=== PATIENT | female | born 1990 | race Caucasian/White ===

== ENCOUNTER 2017-06-13 19:58 | Emergency (ER) | payer OTHER ==
[~2017-06-13] VITALS: Ht 157.5 cm; Wt 59.2 kg
[2017-06-13 20:03] VITALS: Ht 157.5 cm; Wt 59.2 kg
[2017-06-13] MEDS ORDERED: SOD CHLORIDE 0.9% 1,000 ML IV STA (21:00)
[2017-06-13] MEDS ORDERED: morphine 4 MG/ML VIAL IV STA (21:00)
[2017-06-13] MEDS ORDERED: ONDANSETRON 4 MG INJ IV STA (21:00)
[2017-06-13 21:41] LABS: ADD SCAN DIFF NO
[2017-06-13 21:50] LABS: BASOPHILS % 0.5 % (0.0-2.0); EOSINOPHILS # 0.1 10^3/ul (0.0-0.5); HEMATOCRIT 37.4 % (37.0-47.0); HEMOGLOBIN 11.9 g/dl (12.0-16.0); LYMPHOCYTES # 2.2 10^3/ul (0.8-2.9); MEAN CORPUSCULAR HEMOGLOBIN 26.6 pg (29.0-33.0); MEAN CORPUSCULAR HGB CONC 31.8 g/dl (32.0-37.0); MEAN CORPUSCULAR VOLUME 83.7 fl (82.0-101.0); MEAN PLATELET VOLUME 10.9 fl (7.4-10.4); MONOCYTE # 0.5 10^3/ul (0.3-0.9); MONOCYTES % 5.8 % (0.0-11.0); NEUTROPHIL # 5.2 10^3/ul (1.6-7.5); NEUTROPHILS % 65.6 % (39.0-77.0); PLATELET COUNT 278 10^3/UL (140-415); RED BLOOD COUNT 4.47 10^6/ul (4.20-5.40); RED CELL DISTRIBUTION WIDTH 16.1 % (11.5-14.5)
[2017-06-13 22:03] LABS: ALBUMIN/GLOBULIN RATIO 1.92; CALCIUM 9.7 mg/dl (8.4-10.2); CREATININE 0.65 mg/dl (0.44-1.00); POTASSIUM 3.4 mmol/L (3.5-5.1); TOTAL PROTEIN 7.6 g/dl (6.1-8.1)
[2017-06-13 22:08] LABS: ADD UMIC NO; UR ASCORBIC ACID 40 mg/dL (NEGATIVE); UR BILIRUBIN (Dip) NEGATIVE (NEGATIVE); UR BLOOD (Dip) NEGATIVE (NEGATIVE); UR CLARITY SLIGHTLY CLOUDY (CLEAR); UR COLOR YELLOW (YELLOW); UR GLUCOSE (Dip) NEGATIVE (NEGATIVE); UR KETONES (Dip) NEGATIVE (NEGATIVE); UR LEUKOCYTE ESTERASE (Dip) NEGATIVE Leu/ul (NEGATIVE); UR NITRITE (Dip) NEGATIVE (NEGATIVE); UR RBC 1 /HPF (0-5); UR SPECIFIC GRAVITY (Dip) 1.014 (1.003-1.030); UR SQUAMOUS EPITHELIAL CELL FEW /HPF (FEW); UR TOTAL PROTEIN (Dip) NEGATIVE (NEGATIVE); UR UROBILINOGEN (Dip) NEGATIVE (NEGATIVE)
--- NOTE | 2017-06-13 22:09 | RADRPT ---
PROCEDURE: CT Abdomen and Pelvis without contrast. CLINICAL INDICATION: Abdominal and pelvic pain. Right lower quadrant pain TECHNIQUE: CT scan of the abdomen and pelvis without contrast was performed. Coronal and sagittal reformatted images were obtained from the axial source images. Images were reviewed on a high-resolu [employer] PACS workstation. Total exam DLP is 335.73 mGy-cm. CTDIvol is 7.45 mGy. One or more of the [place] dose reduction techniques were used: Automated exposure control, adjustment of the mA and/or kV according to patient size, use of iterative reconstruction technique. COMPARISON: None. FINDINGS: The lung bases are normal. There is no pleural effusion. The liver is normal in size and attenuation. There is no focal hepatic lesion. The gallbladder and bile ducts are normal. The spleen is normal in size. There is no focal splenic lesion. Both adrenals are normal with no enlargement or mass. The pancreas is unremarkable with no mass or evidence of pancreatitis. There is no renal mass or hydronephrosis. There is no renal calculus or ureteral calculus. The abdominal aorta is not dilated. There is no retroperitoneal lymphadenopathy or mass. There is no pelvic lymphadenopathy or mass. The bladder and distal ureters are normal. The periappendiceal region is unremarkable with no evidence of appendicitis. The appendix is well s een and appears normal. The bowel and mesentery are normal. There is no free fluid or free gas. The osseous structures are unremarkable with no fracture or lytic lesion. IMPRESSION: 1. No urinary tract calculus or hydronephrosis. 2. Normal appendix. 3. Unremarkable CT scan of the abdomen and pelvis. RPTAT: QQ .Henry Soler MD, Date Time Electronically viewed and signed by .Henry Soler MD, on 06/13/2017 22:08 .R/
[2017-06-13] MEDS ORDERED: IBUP-1542 PO (22:24)
[2017-06-13] MEDS ORDERED: LOPE2CAP PO (22:24)
--- NOTE | 2017-06-13 22:47 | ERD ---
ER Documentation Chief Complaint Date/Time DATE: 06/13/17 TIME: 22:44 Chief Complaint RLQ abd pain since yesterday denies N/vomiting/diarrhea HPI This is a 27-year-old female presents to the ER with right lower quadrant pain that started yesterday. Patient states that abdominal pain is sharp and intermittent describes it as severe. She denies any fevers or chills. She denies any nausea or vomiting. She does admit to watery nonbloody diarrhea. Her last normal menstrual period was on May 08, 2017. Patient denies any urinary frequency or dysuria. She denies any pelvic pain or vaginal discharge. Patient denies any chest pain or shortness of breath. ROS 12 point review of systems was done, all negative except per HPI. Medications Home Meds Active Scripts Loperamide Hcl* (Imodium*) 2 Mg Capsule, 2 MG PO .AFTER EA LOOSE BM Y for DIARRHEA, #10 TAB Prov:RICARDA CANADA 06/13/17 Ibuprofen* (Motrin*) 600 Mg Tab, 600 MG PO Q6, #30 TAB Prov:RICARDA CANADA 06/13/17 Physical Exam Vitals Vital Signs Date Time Temp Pulse Resp B/P Pulse Ox O2 Delivery O2 Flow Rate FiO2 06/13/17 20:03 98.1 99 18 123/75 98 Physical Exam GENERAL: The patient is well developed and appropriate for usual state of health , in no apparent distress. HEENT: Atraumatic. CHEST: Clear to auscultation bilaterally. There are no rales, wheezes or rhonchi. HEART: Regular rate and rhythm. No murmurs, clicks, rubs or gallops. ABDOMEN: Soft, nontender and nondistended. Good bowel sounds. No rebound or guarding. No gross peritonitis. No gross organomegaly or masses. No Stern sign or McBurney point tenderness. BACK: No midline or flank tenderness. NEURO: Alert and oriented. Result Diagram: 06/13/17212906/13/172129 Results 24 hrs Laboratory Tests Test 06/13/17 21:15 06/13/17 21:30 Urine Color YELLOW Urine Clarity SLIGHTLY CLOUDY Urine pH 7.0 Urine Specific [place] 1.014 Urine Ketones NEGATIVEmg/dL Urine Nitrite NEGATIVEmg/dL Urine Bilirubin NEGATIVEmg/dL Urine Urobilinogen NEGATIVEmg/dL Urine Leukocyte Esterase NEGATIVELeu/ul Urine Microscopic RBC 1/HPF Urine Microscopic WBC 1/HPF Urine Squamous Epithelial Cells FEW/HPF Urine Hemoglobin NEGATIVEmg/dL Urine Glucose NEGATIVEmg/dL Urine Total Protein NEGATIVEmg/dl White Blood Count 8.010^3/ul Red Blood Count 4.4710^6/ul Hemoglobin 11.9g/dl Hematocrit 37.4% Mean Corpuscular Volume 83.7fl Mean Corpuscular Hemoglobin 26.6pg Mean Corpuscular Hemoglobin Concent 31.8g/dl Red Cell Distribution Width 16.1% Platelet Count 19291^3/UL Mean Platelet Volume 10.9fl Neutrophils % 65.6% Lymphocytes % 27.0% Monocytes % 5.8% Eosinophils % 1.0% Basophils % 0.5% Nucleated Red Blood Cells % 0.0/100WBC Neutrophils # 5.210^3/ul Lymphocytes # 2.210^3/ul Monocytes # 0.510^3/ul Eosinophils # 0.110^3/ul Basophils # 0.010^3/ul Nucleated Red Blood Cells # 0.010^3/ul Sodium Level 133mmol/L Potassium Level 3.4mmol/L Chloride Level 99mmol/L Carbon Dioxide Level 28mmol/L Anion Gap 9 Blood Urea Nitrogen 15mg/dl Creatinine 0.65mg/dl Glucose Level 96mg/dl Calcium Level 9.7mg/dl Total Bilirubin 0.0mg/dl Direct Bilirubin 0.00mg/dl Indirect Bilirubin 0.0mg/dl Aspartate Amino Transf (AST/SGOT) 28IU/L Alanine Aminotransferase (ALT/SGPT) 24IU/L Alkaline Phosphatase 61IU/L Total Protein 7.6g/dl Albumin 5.0g/dl Globulin 2.60g/dl Albumin/Globulin Ratio 1.92 Lipase 53U/L Current Medications Medications (Trade) Dose Ordered Sig/Nely Route PRN Reason Start Time Stop Time Status Last Admin Dose Admin Sodium Chloride (NS) 1,000 ml @ 1,000 mls/hr Q1H STAT IV 06/13/17 21:00 06/13/17 21:59 DC 06/13/17 21:27 Morphine Sulfate (morphine) 5 mg ONCE STAT IV 06/13/17 21:00 06/13/17 21:03 DC Ondansetron HCl (Zofran Inj) 4 mg ONCE STAT IV 06/13/17 21:00 06/13/17 21:03 [place] [id number] Radiology Main Line: [phone] DIAGNOSTIC IMAGING REPORT Patient: IGOR NAYLOR : 1990 Age: 27 Sex: F MR #: [id number] DOS: 06/13/17 2100 Ordering MD: RICARDA CANADA PA-C Location: [facility] Room/Bed: PROCEDURE: CT Abdomen and Pelvis without contrast. CLINICAL INDICATION: Abdominal and pelvic pain. Right lower quadrant pain TECHNIQUE: CT scan of the abdomen and pelvis without contrast was performed. Coronal and sagittal reformatted images were obtained from the axial source images. Images were reviewed on a high-resolution PACS workstation. Total exam DLP is 335.73 mGy-cm. CTDIvol is 7.45 mGy. One or more of the following dose reduction techniques were used: Automated exposure control, adjustment of the mA and/or kV according to patient size, use of iterative reconstruction technique. COMPARISON: None. FINDINGS: The lung bases are normal. There is no pleural effusion. The liver is normal in size and attenuation. There is no focal hepatic lesion. The gallbladder and bile ducts are normal. The spleen is normal in size. There is no focal splenic lesion. Both adrenals are normal with no enlargement or mass. The pancreas is unremarkable with no mass or evidence of pancreatitis. There is no renal mass or hydronephrosis. There is no renal calculus or ureteral calculus. The abdominal aorta is not dilated. There is no retroperitoneal lymphadenopathy or mass. There is no pelvic lymphadenopathy or mass. The bladder and distal ureters are normal. The periappendiceal region is unremarkable with no evidence of appendicitis. The appendix is well seen and appears normal. The bowel and mesentery are normal. There is no free fluid or free gas. The osseous structures are unremarkable with no fracture or lytic lesion. IMPRESSION: 1. No urinary tract calculus or hydronephrosis. 2. Normal appendix. 3. Unremarkable CT scan of the abdomen and pelvis. RPTAT: QQ .Henry Soler MD, MD Date Time Electronically viewed and signed by .Henry Soler MD, MD on 06/13/2017 22:08 .R/ CC: RICARDA CANADA Procedures/MDM Differential diagnosis includes but is not limited to appendicitis, UTI, constipation, ectopic , ovarian torsion, PID, Mittelschmerz, fibroid. This is a 27-year-old female presents to the ER with right lower quadrant pain, at this time suspicion for acute abdomen is low. Patient does not have any evidence of leukocytosis or of appendicitis or any other acute abdominal emergency on CT scan. Patient is extremely well-appearing she is afebrile. Patient was sent with ibuprofen with Imodium. Patient is to follow-up with her primary care doctor within 1-2 days return to ER sooner if symptoms worsen. My medical decision making shared with the patient she understands and agrees with plan. Departure Diagnosis: Primary Impression: Abdominal pain Condition: Stable Patient Instructions: Abdominal Pain Referrals: EL PROJUSTINA KIM (PCP) Additional Instructions: Call your primary care doctor TOMORROW for an appointment during the next 1-2 days.See the doctor sooner or return here if your condition worsens before your appointment time. RICARDA CANADA Jun 13, 2017 22:46
[2017-06-13 22:50] VITALS: BP 124/78; PULSE 72; RESP 20; TEMP 99.2
== END 2017-06-13 22:51 | disposition home or self-care (01) ==
LOC: FTE 19:58
DX: R10.31 Right lower quadrant pain (principal); R10.2 Pelvic and perineal pain
CPT/HCPCS: 36415; 74176; 80053; 81001; 83690; 85025; J7030; Z7502; 81003

== ENCOUNTER 2017-09-01 11:59 | Emergency (ER) | payer OTHER ==
[~2017-09-01] VITALS: Ht 160 cm; Wt 60.5 kg
[~2017-09-01 11:59] MED LIST: IBUP-1542 PO; LOPE2CAP PO
[2017-09-01 12:10] VITALS: Ht 160 cm; Wt 60.5 kg
[2017-09-01] MEDS ORDERED: KETOROLAC 30 MG INJ IM STA (12:36)
--- NOTE | 2017-09-01 13:13 | RADRPT ---
PROCEDURE: XR Hand. CLINICAL INDICATION: Trauma. Right hand pain. TECHNIQUE: Three views. Frontal, lateral, and oblique images of the right hand were obtained. COMPARISON: No prior studies are available for comparison. FINDINGS: There is an acute comminuted minimally displaced fracture of the base of the fourth metacarpal. Ther e is an acute comminuted minimally displaced fracture of the base of the fifth metacarpal which exte nds to the proximal articular surface. There is no other fracture and there is no dislocation. There is soft tissue swelling overlying the fractures. The articular surfaces are otherwise intact. There is no lytic or blastic lesion. There is no radiopaque foreign body. IMPRESSION: 1. Acute fractures of the bases of the fourth and fifth metacarpals. 2. Overlying soft tissue swelling. 3. Otherwise unremarkable study. RPTAT: QQ .Henry Soler MD, MD Date Time Electronically viewed and signed by .Henry Soler MD, MD on 09/01/2017 13:13 .R/
[2017-09-01] MEDS ORDERED: HYDR-906 PO (13:30)
[2017-09-01] MEDS ORDERED: NAPR-260 PO (13:30)
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
== END 2017-09-01 13:58 | disposition home or self-care (01) ==
LOC: FTE 11:59
DX: S62.394A Other fracture of fourth metacarpal bone, right hand, initial encounter for closed fracture (principal); S62.396A Other fracture of fifth metacarpal bone, right hand, initial encounter for closed fracture; W22.8XXA Striking against or struck by other objects, initial encounter
CPT/HCPCS: 73130; 96372; J1885; Z7502

== ENCOUNTER 2017-09-02 22:01 | Emergency (ER) | payer OTHER ==
[~2017-09-02] VITALS: Ht 162.6 cm; Wt 62.5 kg
[~2017-09-02 22:01] MED LIST changes: +HYDR-906 PO; +NAPR-260 PO
[2017-09-02 22:09] VITALS: Ht 162.6 cm; Wt 62.5 kg
[2017-09-03] MEDS ORDERED: HYDROCODONE/APAP (5/325) TAB PO ONE (00:30)
--- NOTE | 2017-09-03 00:56 | ERD ---
ER Documentation Chief Complaint Date/Time DATE: 09/03/17 TIME: 00:49 Chief Complaint wrist fx last saturday with splint - severe pain and swelling on hand HPI 27-year-old female presents to emergency department for reevaluation, patient had a fourth and fifth metacarpal of the right hand. Patient states it continues to be swollen and painful. Patient was taking ibuprofen but did not take the [place] given to her. Patient denies any numbness or tingling. Patient denies any deformity. Patient kept the splint in place. Patient did describe the pain as throbbing pain, 4/10 scale, not better or worse with anything. Has a scheduled appointment with orthopedic doctor. ROS All systems reviewed and are negative except as per history of present illness. Medications Home Meds Active Scripts Naproxen* (Naprosyn*) 500 Mg Tablet, 500 MG PO BID Y for PAIN AND/OR INFLAMMATION, #30 TAB Prov:CHELLY CHASE PA-C 09/01/17 Hydrocodone/Acetaminophen ([place] 5-325 Tablet) 1 Each Tablet, 1 TAB PO Q6H Y for PAIN, #12 TAB Prov:CHELLY CHASE PA-C 09/01/17 Loperamide Hcl* (Imodium*) 2 Mg Capsule, 2 MG PO .AFTER EA LOOSE BM Y for DIARRHEA, #10 TAB Prov:RICARDA CANADA 06/13/17 Ibuprofen* (Motrin*) 600 Mg Tab, 600 MG PO Q6, #30 TAB Prov:RICARDA CANADA 06/13/17 Allergies Allergies: Coded Allergies: No Known Allergy (Unverified , 09/02/17) PMhx/Soc Medical and Surgical Hx: pt denies Medical Hx, pt denies Surgical Hx History of Surgery: No Anesthesia Reaction: No Hx Neurological Disorder: No Hx Respiratory Disorders: No Hx Cardiac Disorders: No Hx Psychiatric Problems: No Hx Miscellaneous Medical Probl: No Hx Alcohol Use: Yes Hx Substance Use: No Hx Tobacco Use: No Smoking Status: Never smoker FmHx Family History: No coronary disease, No diabetes, No other Physical Exam Vitals Vital Signs Date Time Temp Pulse Resp B/P Pulse Ox O2 Delivery O2 Flow Rate FiO2 09/02/17 22:09 98.4 76 20 116/75 99 Physical Exam GENERAL: The patient is well developed and appropriate for usual state of health, in no apparent distress. CHEST: Clear to auscultation bilaterally. There are no rales, wheezes or rhonchi. HEART: Regular rate and rhythm. No murmurs, clicks, rubs or gallops. No S3 or S4. ABDOMEN: Soft, nontender and nondistended. Good bowel sounds. No rebound or guarding. No gross peritonitis. No gross organomegaly or masses. No Stern sign or McBurney point tenderness. BACK: No midline or flank tenderness. EXTREMITIES: Swelling noted, tenderness on palpation on the fourth and fifth metacarpal of the right hand. Equal pulses bilaterally. Full range of motion of other joints of the body. Grossly neurovascularly intact. NEURO: Alert and oriented. Cranial nerves 2-12 intact. Motor strength in all 4 extremities with 5/5 strength. Sensation grossly intact. Normal speech and gait. SKIN: There is no apparent rash or petechia. The skin is warm and dry. HEMATOLOGIC AND LYMPHATIC: There is no evidence of excessive bruising or lymphedema. No gross cervical, axillary, or inguinal lymphadenopathy. Results 24 hrs Current Medications Medications (Trade) Dose Ordered Sig/Nely Route PRN Reason Start Time Stop Time Status Last Admin Dose Admin Acetaminophen/ Hydrocodone Bitart ([place] (5/325)) 1 tab ONCE ONCE PO 09/03/17 00:30 10 00:31 DC 09/03/17 00:40 Patient was given medication for pain here in emergency department, after treatment, patient verbalized feeling much better. Patient's pain is improved. After receiving patients xray report, re-splinting was done on the right wrist right hand. After application of the splint, patient has intact sensation and circulation on distal area of the affected joint. Patient does not complain of numbness or tingling after application of the splint. Patient tolerated procedure well. Sling was given to use afterwards. Procedures/MDM Medical Decision Making: Patient's pain is most likely consistent with a sugar of the fourth and fifth metacarpal there is no suspicion for neurovascular compromise. Patient has intact sensation and circulation of the affected extremity. There is low suspicion for septic arthritis. Patient does not have any fever. Repeat Radiology exams not indicated at this time. Disposition: Home. Patient was advised to see orthopedic doctor, continue ibuprofen and El[place]feld at home. Patient was advised to elevate the affected area and apply ice on affected area. Patient was advised that if symptoms are worse , numbness, tingling, high fever, unable to move joint, worsening symptoms, to return to emergency department immediately. Otherwise, patient is advised to follow up with the primary care doctor in 5-7 days for reevaluation of symptoms. Disclaimer: Inadvertent spelling and grammatical errors are likely due to EHR/ dictation software use and do not reflect on the overall quality of patient care. Also, please note that the electronic time recorded on this note does not necessarily reflect the actual time of the patient encounter. Departure Diagnosis: Primary Impression: Fracture of fourth metacarpal bone of right hand Encounter type: subsequent encounter Fracture type: closed Metacarpal location: unspecified portion of metacarpal Fracture alignment: nondisplaced Fracture healing: with routine healing Qualified Code: S62.304D - Closed nondisplaced fracture of fourth metacarpal bone of right hand with routine healing, unspecified portion of metacarpal, subsequent encounter Additional Impression: Fracture of fifth metacarpal bone of right hand Encounter type: initial encounter Fracture type: closed Metacarpal location : unspecified portion of metacarpal Fracture alignment: nondisplaced Qualified Code: S62.306A - Closed nondisplaced fracture of fifth metacarpal bone of right hand, unspecified portion of metacarpal, initial encounter Condition: Stable Patient Instructions: Treating Hand Fractures Referrals: EL TRE KIM (PCP) Additional Instructions: see orthopedic doctor as per appointed and instucted with PMD, keep splint in place and sling, elevate NENA CHRISTIAN NP Sep 03, 2017 00:56
== END 2017-09-03 01:08 | disposition home or self-care (01) ==
LOC: FTE 22:01
DX: S62.304A Unspecified fracture of fourth metacarpal bone, right hand, initial encounter for closed fracture (principal); S62.306A Unspecified fracture of fifth metacarpal bone, right hand, initial encounter for closed fracture; X58.XXXA Exposure to other specified factors, initial encounter; Y92.9 Unspecified place or not applicable
CPT/HCPCS: Z7502; Z7610; 99283

== ENCOUNTER 2018-04-27 20:57 | Emergency (ER) | END 2018-04-27 22:15 | disposition home or self-care (01) ==

== ENCOUNTER 2018-07-01 00:23 | Emergency (ER) | END 2018-07-01 04:00 | disposition home or self-care (01) ==

== ENCOUNTER 2018-07-13 15:46 | Emergency (ER) | END 2018-07-13 17:31 | disposition home or self-care (01) ==

== ENCOUNTER 2018-08-07 09:00 | Emergency (ER) | END 2018-08-07 11:05 | disposition home or self-care (01) ==

== ENCOUNTER 2018-09-16 21:05 | Emergency (ER) | END 2018-09-16 22:22 | disposition home or self-care (01) ==

== ENCOUNTER 2019-02-28 00:34 | Emergency (ER) | payer SELFPAY ==
[~2019-02-28] VITALS: Ht 157.5 cm; Wt 63.4 kg
[~2019-02-28 00:34] MED LIST changes: +CIPR500T4 PO; +ELEC100080 PO; +HYDR-4011 PO; -HYDR-906 PO; -NAPR-260 PO; +NAPR-985 PO; +ONDA4TAB8 PO; +TRAM50TA2 PO
[2019-02-28 00:52] VITALS: BP 126/77; PULSE 85; RESP 18; Ht 157.5 cm; Wt 63.4 kg
== END 2019-02-28 06:35 | disposition left against medical advice (07) ==
LOC: FTE 00:34
DX: Z53.21 Procedure and treatment not carried out due to patient leaving prior to being seen by health care provider (principal)